=== PATIENT | male | born 1945 | race Caucasian/White ===

== ENCOUNTER 2022-09-08 13:57 | Emergency (ER) | payer MEDICARE ==
[~2022-09-08] VITALS: Ht 172.7 cm; Wt 81.6 kg
--- NOTE | 2022-09-08 14:10 | NUR ---
Dr Devries at the bedside for MSE.
--- NOTE | 2022-09-08 14:20 | NUR ---
Pt's grandchildren stay in the room w/ pt.
[2022-09-08 14:22] VITALS: O2SAT 98
[2022-09-08] MEDS ORDERED: IPRATROPIUM BROMIDE 0.5 MG/2.5 ML NEBU ONE (14:23)
[2022-09-08] MEDS ORDERED: ALBUTEROL SULFATE 2.5 MG/3 ML NEBU ONE (14:23)
[2022-09-08] MEDS ORDERED: methylPREDNISolone SOD SUCC 125 MG/2 ML VIAL IV ONE (14:30)
[2022-09-08] MEDS ORDERED: IPRATROPIUM BROMIDE 0.5 MG/2.5 ML NEBU NEB ONE (14:30)
[2022-09-08] MEDS ORDERED: ALBUTEROL SULFATE 2.5 MG/3 ML NEBU NEB ONE (14:30)
--- NOTE | 2022-09-08 14:30 | NUR ---
Spoke to pt's son, Shorty, HX and med list provided by him.
[2022-09-08] MEDS ORDERED: methylPREDNISolone SOD SUCC 125 MG/2 ML VIAL ONE (14:31)
[2022-09-08 14:36] LABS: HEMATOCRIT 39.3 % (36.7-47.1); MEAN CORPUSCULAR VOLUME 92.2 fL (73.0-96.2); PLATELET COUNT (AUTO) 329 K/uL (152-348)
[2022-09-08] MEDS ORDERED: LEVO25TA9 PO (14:54)
[2022-09-08] MEDS ORDERED: FURO40TA5 PO (14:54)
[2022-09-08] MEDS ORDERED: APIX5TAB PO (14:54)
[2022-09-08] MEDS ORDERED: POTA-88 PO ×2 (14:54)
[2022-09-08] MEDS ORDERED: DILT180C66 PO (14:54)
[2022-09-08 15:03] LABS: CARBON DIOXIDE 26 mmol/L (21-32); CHLORIDE 103 mmol/L (98-107); CREATININE 1.4 mg/dL (0.6-1.3); POTASSIUM 4.2 mmol/L (3.5-5.1); UREA NITROGEN, BLOOD 18 mg/dL (7-18)
[2022-09-08 15:16] LABS: ALANINE AMINOTRANSFERASE 13 U/L (16-63); ALKALINE PHOSPHATASE 106 U/L (50-136); ASPARTATE AMINOTRANSFERASE 18 U/L (15-37); BILIRUBIN,DIRECT 0.1 mg/dL (0.0-0.2); BILIRUBIN,TOTAL 0.7 mg/dL (0.2-1.0); TOTAL PROTEIN, SERUM 7.7 g/dL (6.4-8.2)
[2022-09-08 15:20] VITALS: O2SAT 98
[2022-09-08] MEDS ORDERED: PRED50TA PO (17:15)
--- NOTE | 2022-09-08 17:55 | NUR ---
IV removed. Catheter intact and site benign. Pressure and 4x4 gauze applied to site. No bleeding noted.
[2022-09-08 18:01] VITALS: BP 143/81; O2SAT 94
--- NOTE | 2022-09-08 18:02 | NUR ---
Patient discharged to home in stable condition. Written and verbal after care instructions given. Patient verbalizes understanding of instructions. Stressed follow up or return to ER for worsening s/s.
[2022-09-09 00:37] LABS: ABG BASE EXCESS -2.9 mmol/L; ABG HCO3 21.7 mmol/L; ABG PCO2 37.1 mmHg (35.0-45.0); ABG PH 7.384 (7.350-7.450); ABG PO2 66.2 mmHg (75.0-100.0); ABG SITE RIGHT RADIAL; ABG TOTAL HEMOGLOBIN 13.3 G/dL (13.5-18.0); MetHb 0.2 % (0.0-1.5); O2Hb 90.7 % (94.0-97.0); VENT MODE Nasal Cannula
== END 2022-09-08 18:02 | disposition home or self-care (01) ==
LOC: ER 13:57
DX: J44.1 Chronic obstructive pulmonary disease with (acute) exacerbation (principal); R07.89 Other chest pain; Z79.899 Other long term (current) drug therapy
CPT/HCPCS: 99291; 96374; 80076; 80048; 83880; 85025; 85379; 84484; 36415; 93005; 71045; 36600; J2930; A4663; J3590